=== PATIENT | male | born 1955 | race Caucasian/White ===

== ENCOUNTER 2018-04-15 00:59 | Inpatient (IN) | payer MEDICARE, MEDICAID ==
[~2018-04-15] VITALS: Ht 162.6 cm; Wt 96.2 kg
[2018-04-15 02:28] LABS: HEMATOCRIT. 37.5 % (42.0-52.0); HEMOGLOBIN. 12.4 g/dL (14.0-18.0); MEAN CORPUSCULAR HEMOGLOBIN 30.9 pg (28.0-32.0); MEAN CORPUSCULAR VOLUME 93.4 fL (80.0-94.0); MEAN PLATELET VOLUME 8.5 fl (7.4-10.4); PLATELET 174 x1000/uL (130-400); RED BLOOD CELL COUNT 4.01 mill/uL (4.7-6.1); RED CELL DISTRIBUTION WIDTH 16.9 % (11.6-14.6)
[2018-04-15 02:36] LABS: INR 1.1
[2018-04-15 02:37] LABS: CHLORIDE 103 mEq/L (98-107)
[2018-04-15 03:43] LABS: CLARITY URINE CLOUDY (CLEAR); COLOR URINE YELLOW (YELLOW); KETONES URINE TRACE (NEGATIVE); LEUKOCYTE ESTERASE URINE 2+ (NEGATIVE); NITRITE URINE NEGATIVE (NEGATIVE); OCCULT BLOOD URINE TRACE (NEGATIVE); PROTEIN URINE 3+ (NEGATIVE); SPECIFIC GRAVITY URINE 1.015 (1.005-1.030); UROBILINOGEN URINE 0.2 E.U./dL (0.2-1.0)
[2018-04-15 03:45] LABS: PLATELET ESTIMATE NORMAL
[2018-04-15] MEDS ORDERED: SODIUM CHLORIDE 0.9% 1,000 ML IV ONE (03:48)
[2018-04-15] MEDS ORDERED: CEFTRIAXONE 1 G PREMIX 50 ML IV ONE (04:00)
[2018-04-15] MEDS ORDERED: POTASSIUM CHLORIDE 20MEQ TABLET SR PO ONE (04:15)
[2018-04-15] MEDS ORDERED: LIDOCAINE HCL 1% 20ML VIAL (Pyxis) INJ ONE (10:20)
[2018-04-15 10:30] VITALS: BP 129/58
[2018-04-15] MEDS ORDERED: METO5TAB69 MT (10:39)
[2018-04-15] MEDS ORDERED: METO-411 MT (10:39)
[2018-04-15] MEDS ORDERED: RANO10003 MT (10:39)
[2018-04-15] MEDS ORDERED: HYDR100T26 MT (10:39)
[2018-04-15] MEDS ORDERED: AMLO10TA80 MT (10:39)
[2018-04-15] MEDS ORDERED: TRAM50TA3 MT (10:39)
[2018-04-15] MEDS ORDERED: OMEP20CA10 MT (10:39)
[2018-04-15] MEDS ORDERED: ISOS20TA57 PO (10:39)
[2018-04-15] MEDS ORDERED: TICA90TA MT (10:39)
[2018-04-15] MEDS ORDERED: FURO80TA3 MT (10:39)
[2018-04-15] MEDS ORDERED: FERR324T4 MT (10:39)
[2018-04-15] MEDS ORDERED: TAMS0.4C31 MT (10:39)
[2018-04-15] MEDS ORDERED: ATOR-2 MT (10:39)
[2018-04-15] MEDS ORDERED: FLUT16SP15 BOTHNSTRLS (10:39)
[2018-04-15] MEDS ORDERED: LINA5TAB MT (10:39)
[2018-04-15 12:00] VITALS: BP 129/56
[2018-04-15] MEDS ORDERED: ACETAMINOPHEN 325MG TABLET PO NR (13:15)
[2018-04-15] MEDS: PIPERACILLIN/TAZ 2.25G PREMIX 50 ML IV SCH ×2 (14:53→22:57)
[2018-04-15 15:42] LABS: HEMATOCRIT. 37.6 % (42.0-52.0); HEMOGLOBIN. 12.6 g/dL (14.0-18.0); MEAN CORPUSCULAR HEMOGLOBIN 31.3 pg (28.0-32.0); MEAN CORPUSCULAR VOLUME 93.3 fL (80.0-94.0); MEAN PLATELET VOLUME 8.6 fl (7.4-10.4); PLATELET 167 x1000/uL (130-400); RED BLOOD CELL COUNT 4.04 mill/uL (4.7-6.1); RED CELL DISTRIBUTION WIDTH 17.1 % (11.6-14.6)
[2018-04-15 15:54] LABS: CHLORIDE 106 mEq/L (98-107)
[2018-04-15 16:00] VITALS: BP 119/58
[2018-04-15 16:03] LABS: CREATINE KINASE 98 IU/L (39-308)
[2018-04-15 16:06] LABS: CREATINE KINASE MB FRACTION 1.6 ng/mL (0.5-3.6)
[2018-04-15] MEDS ORDERED: VANCOMYCIN 1 G PREMIX 200 ML IV ONE (17:15)
[2018-04-15 17:29] LABS: PLATELET ESTIMATE NORMAL
[2018-04-15 19:45] LABS: CLARITY URINE CLOUDY (CLEAR); COLOR URINE YELLOW (YELLOW); KETONES URINE NEGATIVE (NEGATIVE); LEUKOCYTE ESTERASE URINE 1+ (NEGATIVE); NITRITE URINE NEGATIVE (NEGATIVE); OCCULT BLOOD URINE 1+ (NEGATIVE); PROTEIN URINE 3+ (NEGATIVE); SPECIFIC GRAVITY URINE 1.013 (1.005-1.030); UROBILINOGEN URINE 0.2 E.U./dL (0.2-1.0)
[2018-04-15 20:00] VITALS: BP 165/75
[2018-04-15 20:11] LABS: *AMPHETAMINES SCREEN URINE NEGATIVE (NEGATIVE)
[2018-04-15 20:12] LABS: *BARBITURATES SCREEN URINE NEGATIVE (NEGATIVE); *BENZODIAZEPINES SCREEN URINE NEGATIVE (NEGATIVE); *COCAINE SCREEN URINE NEGATIVE (NEGATIVE); METHADONE URINE SCREEN NEGATIVE (NEGATIVE); OPIATES URINE SCREEN NEGATIVE (NEGATIVE); PHENCYCLIDINE URINE SCREEN NEGATIVE (NEGATIVE)
[2018-04-15 20:13] LABS: CANNABINOID URINE SCREEN NEGATIVE (NEGATIVE)
[2018-04-15] MEDS ORDERED: VANCOMYCIN 1,750 MG in DEXT 5% WATER 250 ML IV NR (21:00)
[2018-04-15 23:23] LABS: CREATINE KINASE MB FRACTION 1.2 ng/mL (0.5-3.6)
[2018-04-16] VITALS: BP 117/47
[2018-04-16] MEDS: ACETAMINOPHEN 325MG TABLET PO PRN ×2 (00:42→22:18)
[2018-04-16 04:00] VITALS: BP 126/87
[2018-04-16] MEDS: PIPERACILLIN/TAZ 2.25G PREMIX 50 ML IV SCH ×3 (05:11→21:34)
[2018-04-16 06:36] LABS: HEMATOCRIT. 37.2 % (42.0-52.0); HEMOGLOBIN. 12.3 g/dL (14.0-18.0); MEAN CORPUSCULAR HEMOGLOBIN 31.2 pg (28.0-32.0); MEAN CORPUSCULAR VOLUME 94.2 fL (80.0-94.0); MEAN PLATELET VOLUME 8.8 fl (7.4-10.4); PLATELET 164 x1000/uL (130-400); RED BLOOD CELL COUNT 3.95 mill/uL (4.7-6.1)
[2018-04-16 06:58] LABS: CHLORIDE 105 mEq/L (98-107)
[2018-04-16] MEDS: BLOOD SUGAR DIAGNOSTIC STRIP TEST SCH ×4 (06:58→21:00)
[2018-04-16] MEDS: INSULIN LISPRO 100 UNITS/ML SUBCUT SCH ×4 (06:58→22:13)
[2018-04-16] MEDS ORDERED: DEXTROSE 50% WATER 50ML SYRINGE IV PRN (07:00)
[2018-04-16 07:21] LABS: PHOSPHORUS 4.1 mg/dL (2.5-4.9)
[2018-04-16 08:22] VITALS: BP 101/54
[2018-04-16 11:59] VITALS: BP 118/45
[2018-04-16 13:54] LABS: PLATELET ESTIMATE NORMAL
[2018-04-16 16:00] VITALS: BP 115/54
[2018-04-16] MEDS ORDERED: LOPERAMIDE HCL 2MG CAPSULE PO PRN (17:45)
[2018-04-16] MEDS ORDERED: NITROGLYCERIN 0.4MG TABLET SL SL PRN (17:45)
[2018-04-16] MEDS ORDERED: DIPHENOXYLATE/ATROPINE 2.5/0.025MG TABLET PO PRN (18:00)
[2018-04-16] MEDS ORDERED: MEDICATION NOT ON FORMULARY EA (Ranolazine (Ranexa) 1 TAB) MT SCH (19:45)
[2018-04-16] MEDS ORDERED: MEDICATION NOT ON FORMULARY EA (Ferrous Sulfate 1 TAB) MT SCH (19:45)
[2018-04-16] MEDS ORDERED: MEDICATION NOT ON FORMULARY EA (Metoprolol Succinate 1 TAB) MT SCH (19:45)
[2018-04-16] MEDS ORDERED: TICAGRELOR MT SCH (19:45)
[2018-04-16] MEDS ORDERED: MEDICATION NOT ON FORMULARY EA (Tramadol Hcl 1 TAB) MT PRN (19:45)
[2018-04-16 20:00] VITALS: BP 119/56
[2018-04-16] MEDS: AMLODIPINE 10MG TABLET PO SCH (20:00)
[2018-04-16] MEDS ORDERED: TAMSULOSIN HCL 0.4MG SR CAPSULE PO SCH (20:00)
[2018-04-16] MEDS ORDERED: TRAMADOL 50MG TABLET PO PRN (20:00)
[2018-04-16] MEDS: ISOSORBIDE DINITRATE 30MG TABLET PO SCH (21:00)
[2018-04-16] MEDS: FLUTICASONE PROPIONATE 50MCG/SPRAY BOTTLE BOTHNSTRLS SCH (21:00)
[2018-04-16] MEDS: ATORVASTATIN CALCIUM 40MG TABLET PO SCH (21:34)
[2018-04-16] MEDS: OMEPRAZOLE 20MG CAPSULE EXTENDED RELEASE PO SCH (21:35)
[2018-04-16] MEDS: METOPROLOL TARTRATE 50MG TABLET PO SCH (21:35)
[2018-04-16] MEDS: RANOLAZINE 500 MG TAB.SR.12H PO SCH (21:35)
[2018-04-16] MEDS: TAMSULOSIN HCL 0.4MG SR CAPSULE PO SCH (21:36)
[2018-04-17] VITALS: BP 90/45
[2018-04-17 04:00] VITALS: BP 134/47
[2018-04-17] MEDS: ACETAMINOPHEN 325MG TABLET PO PRN ×2 (04:05→20:34)
[2018-04-17] MEDS: PIPERACILLIN/TAZ 2.25G PREMIX 50 ML IV SCH ×3 (05:10→20:34)
[2018-04-17] MEDS: BLOOD SUGAR DIAGNOSTIC STRIP TEST SCH ×4 (06:10→20:27)
[2018-04-17] MEDS: INSULIN LISPRO 100 UNITS/ML SUBCUT SCH ×4 (06:10→20:38)
[2018-04-17 08:00] VITALS: BP 128/59
[2018-04-17] MEDS: FERROUS SULFATE 325MG TABLET PO SCH ×2 (09:06→17:56)
[2018-04-17] MEDS: TAMSULOSIN HCL 0.4MG SR CAPSULE PO SCH (09:06)
[2018-04-17] MEDS: RANOLAZINE 500 MG TAB.SR.12H PO SCH ×2 (09:06→20:34)
[2018-04-17] MEDS: AMLODIPINE 10MG TABLET PO SCH (09:07)
[2018-04-17] MEDS: OMEPRAZOLE 20MG CAPSULE EXTENDED RELEASE PO SCH (09:07)
[2018-04-17] MEDS: FLUTICASONE PROPIONATE 50MCG/SPRAY BOTTLE BOTHNSTRLS SCH (09:07)
[2018-04-17] MEDS: LINAGLIPTIN 5MG TABLET PO SCH (09:08)
[2018-04-17] MEDS: METOPROLOL TARTRATE 50MG TABLET PO SCH ×2 (09:11→20:00)
[2018-04-17] MEDS ORDERED: VANCOMYCIN 1 G PREMIX 200 ML IV SCH (11:00)
[2018-04-17 12:00] VITALS: BP 137/61
[2018-04-17] MEDS: ISOSORBIDE DINITRATE 30MG TABLET PO SCH ×2 (12:19→17:56)
[2018-04-17] MEDS ORDERED: MEROPENEM 500 MG in SODIUM CHLORIDE 0.9% 50 ML IV SCH (14:00)
[2018-04-17] MEDS ORDERED: GENTAMICIN SULFATE 180 MG in SODIUM CHLORIDE 0.9% 100 ML IV SCH (15:00)
[2018-04-17 15:43] LABS: HEMATOCRIT. 34.3 % (42.0-52.0); HEMOGLOBIN. 11.3 g/dL (14.0-18.0); MEAN CORPUSCULAR HEMOGLOBIN 30.9 pg (28.0-32.0); MEAN CORPUSCULAR VOLUME 93.7 fL (80.0-94.0); MEAN PLATELET VOLUME 9.2 fl (7.4-10.4); PLATELET 159 x1000/uL (130-400); RED BLOOD CELL COUNT 3.66 mill/uL (4.7-6.1); RED CELL DISTRIBUTION WIDTH 17.3 % (11.6-14.6)
[2018-04-17 15:53] LABS: CHLORIDE 98 mEq/L (98-107)
[2018-04-17 16:00] VITALS: BP 99/54
[2018-04-17 16:58] LABS: PLATELET ESTIMATE NORMAL
[2018-04-17] MEDS: TICAGRELOR 90 MG TABLET PO SCH (18:17)
[2018-04-17 20:00] VITALS: BP 90/45
[2018-04-17] MEDS: ATORVASTATIN CALCIUM 40MG TABLET PO SCH (20:34)
[2018-04-17] MEDS ORDERED: ALBUMIN HUMAN 25GM/100ML (25%) IV NR (20:45)
[2018-04-17] MEDS ORDERED: IBUPROFEN 400MG TABLET PO NR (22:00)
[2018-04-18] VITALS: BP 120/60
[2018-04-18 04:00] VITALS: BP 126/63
[2018-04-18] MEDS: TICAGRELOR 90 MG TABLET PO SCH (06:20)
[2018-04-18] MEDS: BLOOD SUGAR DIAGNOSTIC STRIP TEST SCH (06:20)
[2018-04-18] MEDS: INSULIN LISPRO 100 UNITS/ML SUBCUT SCH (06:34)
[2018-04-18 07:18] LABS: BASOPHILS % 0.9 % (0.0-2.0); HEMATOCRIT. 33.2 % (42.0-52.0); HEMOGLOBIN. 11.1 g/dL (14.0-18.0); LYMPHOCYTES % 13.3 % (20.0-50.0); MEAN CORPUSCULAR VOLUME 92.8 fL (80.0-94.0); MEAN PLATELET VOLUME 8.9 fl (7.4-10.4); MONOCYTES % 10.8 % (2.0-8.0); PLATELET 155 x1000/uL (130-400); RED BLOOD CELL COUNT 3.58 mill/uL (4.7-6.1); RED CELL DISTRIBUTION WIDTH 17.1 % (11.6-14.6)
[2018-04-18 08:00] VITALS: BP 128/65
[2018-04-18 08:00] LABS: PHOSPHORUS 4.3 mg/dL (2.5-4.9)
[2018-04-18] MEDS: TAMSULOSIN HCL 0.4MG SR CAPSULE PO SCH (08:57)
[2018-04-18] MEDS: FLUTICASONE PROPIONATE 50MCG/SPRAY BOTTLE BOTHNSTRLS SCH (08:57)
[2018-04-18] MEDS: ISOSORBIDE DINITRATE 30MG TABLET PO SCH (08:57)
[2018-04-18] MEDS: METOPROLOL TARTRATE 50MG TABLET PO SCH (08:58)
[2018-04-18] MEDS: LINAGLIPTIN 5MG TABLET PO SCH (08:58)
[2018-04-18] MEDS: RANOLAZINE 500 MG TAB.SR.12H PO SCH (08:58)
[2018-04-18] MEDS: AMLODIPINE 10MG TABLET PO SCH (08:58)
[2018-04-18] MEDS: OMEPRAZOLE 20MG CAPSULE EXTENDED RELEASE PO SCH (08:58)
== END 2018-04-18 12:00 | disposition left against medical advice (07) | DRG 871 ==
LOC: ER 00:59 → 8WST 04:04 → EDBEDREQTM 04:12 → EDBEDREQ 04:12 → EDBEDREQSVC 04:12 → ENRESERV 08:50 → CANBEDREQ 09:59
PROVIDERS: ADMIT Family Medicine; ATTEND Family Medicine
PROC: 5A1D70Z Performance of Urinary Filtration, Intermittent, Less than 6 Hours Per Day (ICD-10-PCS; principal; 2018-04-15)
PROC: 5A1D70Z Performance of Urinary Filtration, Intermittent, Less than 6 Hours Per Day (ICD-10-PCS; 2018-04-17)
DX: A41.9 Sepsis, unspecified organism (principal); N18.6 End stage renal disease; N39.0 Urinary tract infection, site not specified; I13.2 Hypertensive heart and chronic kidney disease with heart failure and with stage 5 chronic kidney disease, or end stage renal disease; N40.0 Benign prostatic hyperplasia without lower urinary tract symptoms; E11.22 Type 2 diabetes mellitus with diabetic chronic kidney disease; E66.01 Morbid (severe) obesity due to excess calories; E78.5 Hyperlipidemia, unspecified; Z53.21 Procedure and treatment not carried out due to patient leaving prior to being seen by health care provider; R31.9 Hematuria, unspecified; G40.909 Epilepsy, unspecified, not intractable, without status epilepticus; I25.10 Atherosclerotic heart disease of native coronary artery without angina pectoris; I50.9 Heart failure, unspecified; Z16.12 Extended spectrum beta lactamase (ESBL) resistance; I95.9 Hypotension, unspecified; Z80.0 Family history of malignant neoplasm of digestive organs; Z83.3 Family history of diabetes mellitus; Z85.07 Personal history of malignant neoplasm of pancreas; Z68.36 Body mass index [BMI] 36.0-36.9, adult; Z87.891 Personal history of nicotine dependence; Z88.6 Allergy status to analgesic agent; Z99.2 Dependence on renal dialysis
CPT/HCPCS: 36415; 71045; 74018; 76770; 80048; 80053; 80061; 80202; 80305; 81003; 82550; 82553; 82962; 83036; 83605; 83735; 84100; 84484; 85025; 85610; 87015; 87040; 87045; 87077; 87086; 87186; 87427; 87449; 87493; 93005; 96365; 96366; 99285; J0696; J1580; J1815; J2185; J2543; J3370; J3490; J7030; J7040; J7050; J7060; P9047; J8499

== ENCOUNTER 2024-05-28 07:23 | Emergency (ER) | payer MEDICARE, MEDICAID ==
[~2024-05-28] VITALS: Ht 172.7 cm; Wt 80.0 kg
[~2024-05-28 07:23] MED LIST: AMLO10TA80 MT; ATOR-2 MT; FERR324T4 MT; FLUT16SP15 BOTHNSTRLS; FURO80TA3 MT; HYDR100T11 MT; ISMO20 PO; LINA5TAB MT; METO-411 MT; METO5TAB7 MT; OMEP20CA14 MT; RANO10003 MT; TAMS0.4C31 MT; TICA90TA MT; TRAM50TA3 MT
[2024-05-28 07:33] VITALS: O2SAT 95
[2024-05-28 08:27] LABS: CHLORIDE 97 mEq/L (98-107); SODIUM 131 mEq/L (136-145)
[2024-05-28 08:28] LABS: CALCIUM 10.1 mg/dL (8.7-10.4); CARBON DIOXIDE 30 mEq/L (21-32)
[2024-05-28 08:29] LABS: HEMATOCRIT. 32.2 % (42.0-52.0); HEMOGLOBIN. 10.6 g/dL (14.0-18.0); MEAN CORPUSCULAR HEMOGLOBIN 32.6 pg (28.0-32.0); MEAN CORPUSCULAR VOLUME 98.8 fL (80.0-94.0); MEAN PLATELET VOLUME 8.6 fl (7.4-10.4); PLATELET 145 x1000/uL (130-400); RED BLOOD CELL COUNT 3.26 mill/uL (4.7-6.1); RED CELL DISTRIBUTION WIDTH 15.1 % (11.6-14.6); WHITE BLOOD COUNT 12.8 x1000/uL (4.5-11.0)
[2024-05-28 08:33] LABS: GLUCOSE 74 mg/dL (70-105); UREA NITROGEN BLOOD 48 mg/dL (9-23)
[2024-05-28 08:34] LABS: TROPONIN I HIGH SENSITIVITY 28 ng/L (3.0-53)
[2024-05-28 08:39] LABS: DIFFERENTIAL COMMENT 1
[2024-05-28 08:40] LABS: CREATININE 7.5 mg/dL (0.6-1.3)
[2024-05-28 10:21] LABS: PLATELET ESTIMATE NORMAL
[2024-05-28] MEDS: DEXTROSE 50% WATER 50ML SYRINGE IV ONE (13:10)
[2024-05-28] MEDS: DEXTROSE 50% WATER 50ML SYRINGE IV NR (13:18)
[2024-05-28 17:30] VITALS: BP 216/89; PULSE 81; RESP 13; TEMP 36.61404; O2SAT 96
== END 2024-05-28 19:55 | disposition left against medical advice (07) ==
LOC: ER 07:23 → EDBEDREQTM 09:27 → EDBEDREQ 09:27 → ER 19:55 → EDBEDREQ 20:00 → EDBEDREQTM 20:00
DX: R07.89 Other chest pain (principal); E11.649 Type 2 diabetes mellitus with hypoglycemia without coma; I50.9 Heart failure, unspecified; Z95.0 Presence of cardiac pacemaker; Z99.2 Dependence on renal dialysis; Z88.6 Allergy status to analgesic agent; Z79.899 Other long term (current) drug therapy; Z79.84 Long term (current) use of oral hypoglycemic drugs
CPT/HCPCS: 36415; 71045; 80048; 82962; 83880; 84484; 85025; 93005; 96374; 99285